=== PATIENT | female | born 1995 | race Caucasian/White ===

== ENCOUNTER 2018-01-21 14:37 | Emergency (ER) | payer OTHER ==
[~2018-01-21] VITALS: Ht 160 cm; Wt 57.1 kg
[2018-01-21 14:46] VITALS: Ht 160 cm; Wt 57.1 kg
[2018-01-21 15:55] VITALS: BP 131/77
== END 2018-01-21 15:55 | disposition home or self-care (01) ==
LOC: ED 14:37
DX: R07.89 Other chest pain (principal); R19.7 Diarrhea, unspecified; F41.9 Anxiety disorder, unspecified

== ENCOUNTER 2018-01-27 21:53 | Emergency (ER) | payer OTHER ==
[~2018-01-27] VITALS: Ht 157.5 cm; Wt 58.0 kg
[2018-01-27 22:04] VITALS: BP 114/86; Ht 157.5 cm; Wt 58.0 kg
== END 2018-01-27 22:38 | disposition left against medical advice (07) ==
LOC: ED 21:53
DX: Z53.21 Procedure and treatment not carried out due to patient leaving prior to being seen by health care provider (principal)

== ENCOUNTER 2018-01-30 14:25 | Emergency (ER) | payer OTHER ==
[~2018-01-30] VITALS: Ht 157.5 cm; Wt 50.3 kg
[2018-01-30 14:33] VITALS: BP 122/71; Ht 157.5 cm; Wt 50.3 kg
== END 2018-01-30 14:57 | disposition home or self-care (01) ==
LOC: ED 14:25
DX: T78.1XXA Other adverse food reactions, not elsewhere classified, initial encounter (principal)
CPT/HCPCS: J7512; Q0163